=== PATIENT | female | born 1995 | race Two or more races ===

== ENCOUNTER 2021-09-17 09:31 | Outpatient (CLI) | payer BC ==
[2021-09-17 21:05] LABS: SARS-CoV-2 PCR by NAA Not Detected (NotDetected)
== END 2021-09-17 09:32 | disposition home or self-care (01) ==
LOC: CSHLAB 09:31
PROVIDERS: ATTEND Obstetrics & Gynecology
DX: Z20.822 Contact with and (suspected) exposure to COVID-19 (principal)
CPT/HCPCS: U0003; U0005

== ENCOUNTER 2021-09-21 19:00 | Inpatient (IN) | payer BC ==
[~2021-09-21 19:00] MED LIST: Bupivacaine 0.25% HCL 30 ML VIAL ONE
[2021-09-21 22:15] VITALS: BMI 27.1
[2021-09-21] MEDS ORDERED: Misoprostol 200 MCG TAB PR PRN (22:51)
[2021-09-21] MEDS ORDERED: Acetaminophen 500 MG TAB PO PRN (22:51)
[2021-09-21] MEDS ORDERED: Zolpidem Tartrate 5 MG TAB PO PRN (22:51)
[2021-09-21] MEDS ORDERED: hydrALAZINE 20 MG/ML VIAL SLOW IVP PRN (22:51)
[2021-09-21] MEDS ORDERED: HYDROcodone/Acetaminophen 5/325 mg Tablet PO PRN ×2 (22:51)
[2021-09-21] MEDS ORDERED: Butorphanol Tartrate 1 MG/ML VIAL SLOW IVP PRN (22:51)
[2021-09-21] MEDS ORDERED: Ibuprofen 800 MG TAB PO PRN (22:51)
[2021-09-21] MEDS ORDERED: Ondansetron PF 4 MG/2 ML Vial IVP PRN (22:51)
[2021-09-21] MEDS ORDERED: Promethazine HCl 25 MG/ML VIAL IM PRN (22:51)
[2021-09-21] MEDS ORDERED: Lidocaine 1% (PF) 30 ML VIAL SC PRN (22:51)
[2021-09-21] MEDS ORDERED: Diphenoxylate HCl/Atropine Tablet PO PRN ×2 (22:51)
[2021-09-21] MEDS ORDERED: Docusate 100 MG CAP PO PRN (22:51)
[2021-09-21] MEDS ORDERED: NS w/ Oxytocin 30 units 500 ML IV SCH ×2 (23:00)
[2021-09-21] MEDS ORDERED: Lactated Ringer's 1,000 ML IV SCH (23:00)
[2021-09-21] MEDS: Misoprostol 100 MCG TAB VAG SCH (23:12)
[2021-09-21 23:24] LABS: Hemoglobin 11.7 g/dL (12.0-15.5); Mean Corpuscular HGB CONC 34.8 g/dL (32.0-36.0); Mean Corpuscular Hemoglobin 33.5 pg (27.0-33.0); Mean Corpuscular Volume 96.3 fl (81.6-98.3); Mean Platelet Volume 9.4 fl (7.4-10.4); Platelet Count 333 10x3/uL (150-450); RBC Distribution Width 12.5 % (11.5-14.5); Red Blood Cell (RBC) Count 3.49 10x6/uL (3.90-5.03); White Blood Cell (WBC) Count 14.1 10x3/uL (3.5-10.5)
[2021-09-22 00:22] LABS: Syphilis Antibody Nonreactive (Nonreactive); Syphilis Antibody Index 0.05 S/CO (<1.00 Non-Reactive)
[2021-09-22 00:23] LABS: HIV (1/2) Antibody/Antigen Non-Reactive (NonReactive); Hep B Surf Ag Non-Reactive S/CO (NonReactive)
[2021-09-22 00:31] LABS: HBSAg Index 0.27 S/CO (0-0.99)
[2021-09-22] MEDS ORDERED: Fentanyl 2 mcg/Bup 0.1% Cadd 100 ML ONE ×2 (05:26→13:05)
[2021-09-22] MEDS ORDERED: Acetaminophen 325 MG TAB PO PRN (06:38)
[2021-09-22] MEDS ORDERED: Naloxone HCl 0.4 mg/ml Vial IVP PRN ×2 (06:38)
[2021-09-22] MEDS ORDERED: Hydrocerin (Eucerin) Cream 120 gm Jar TOP PRN (06:38)
[2021-09-22] MEDS ORDERED: Ondansetron PF 4 MG/2 ML Vial IVP PRN ×2 (06:38→14:15)
[2021-09-22] MEDS ORDERED: diphenhydrAMINE 50 MG/ML VIAL IVP PRN (06:38)
[2021-09-22] MEDS ORDERED: Promethazine HCl 25 MG/ML VIAL IM PRN (06:38)
[2021-09-22] MEDS ORDERED: ePHEDrine Sulfate 50 MG/10 ML VIAL SLOW IVP PRN (06:38)
[2021-09-22] MEDS ORDERED: Lactated Ringer's 500 ML IV PRN (06:38)
[2021-09-22] MEDS ORDERED: Fentanyl 2 mcg/Bupivacaine 0.1% Cassette 100 ML EPIDURAL SCH (06:45)
[2021-09-22] MEDS ORDERED: Communication Order-Pharmacy FS SCH (06:45)
[2021-09-22] MEDS ORDERED: Carboprost 250 MCG/ML AMP ONE (13:56)
[2021-09-22] MEDS ORDERED: Misoprostol 200 MCG TAB ONE (13:56)
[2021-09-22] MEDS ORDERED: Methylergonovine 0.2 MG/ML VIAL ONE (13:56)
[2021-09-22] MEDS ORDERED: NS w/ Oxytocin 30 units 500 ML IV SCH (14:15)
[2021-09-22] MEDS ORDERED: Preparation H Ointment 28 GM TUBE PR PRN (14:15)
[2021-09-22] MEDS ORDERED: Boostrix 0.5 ML (Tdap) VIAL IM ONE (14:15)
[2021-09-22] MEDS ORDERED: Benzocaine-Menthol 82.5 ML CAN TOP PRN (14:15)
[2021-09-22] MEDS ORDERED: Misoprostol 200 MCG TAB VAG PRN (14:15)
[2021-09-22] MEDS ORDERED: hydrALAZINE 20 MG/ML VIAL SLOW IVP PRN (14:15)
[2021-09-22] MEDS ORDERED: Milk Of Magnesia 30 ML UDCUP PO PRN (14:15)
[2021-09-22] MEDS ORDERED: diphenhydrAMINE 25 MG CAP PO PRN (14:15)
[2021-09-22] MEDS ORDERED: Lanolin Ointment 7 GM TUBE TOP PRN (14:15)
[2021-09-22] MEDS ORDERED: Bisacodyl 10 MG SUPP PR PRN (14:15)
[2021-09-22] MEDS ORDERED: Witch Hazel-Glycerin 1 EACH JAR TOP PRN (14:18)
[2021-09-22] MEDS: Misoprostol 100 MCG TAB VAG SCH ×2 (18:28→18:29)
[2021-09-22] MEDS: Ferrous Sulfate 325 MG TAB PO SCH (18:28)
[2021-09-22] MEDS ORDERED: HYDROcodone/Acetaminophen 5/325 mg Tablet PO PRN (19:11)
[2021-09-22] MEDS: HYDROcodone/Acetaminophen 5/325 mg Tablet PO PRN (19:38)
[2021-09-22] MEDS: Ibuprofen 800 MG TAB PO SCH (21:44)
[2021-09-22] MEDS: Docusate 100 MG CAP PO SCH (21:44)
[2021-09-23 04:24] LABS: Hemoglobin 9.1 g/dL (12.0-15.5); Mean Corpuscular HGB CONC 34.2 g/dL (32.0-36.0); Mean Corpuscular Volume 99.3 fl (81.6-98.3); Mean Platelet Volume 9.4 fl (7.4-10.4); Platelet Count 237 10x3/uL (150-450); RBC Distribution Width 12.7 % (11.5-14.5); Red Blood Cell (RBC) Count 2.68 10x6/uL (3.90-5.03); White Blood Cell (WBC) Count 18.6 10x3/uL (3.5-10.5)
[2021-09-23] MEDS: Ibuprofen 800 MG TAB PO SCH ×3 (05:37→21:42)
[2021-09-23] MEDS: Ferrous Sulfate 325 MG TAB PO SCH ×2 (08:25→17:27)
[2021-09-23] MEDS: Docusate 100 MG CAP PO SCH ×2 (08:25→21:42)
[2021-09-23] MEDS: HYDROcodone/Acetaminophen 5/325 mg Tablet PO PRN (08:30)
[2021-09-23] MEDS ORDERED: Prenatal Vitamin 1 TAB PO SCH (09:00)
[2021-09-24] MEDS: Ibuprofen 800 MG TAB PO SCH (05:14)
[2021-09-24 07:55] VITALS: BP 112/77; TEMP 97.9
[2021-09-24] MEDS: Docusate 100 MG CAP PO SCH (08:58)
== END 2021-09-24 13:00 | disposition home or self-care (01) | DRG 806 ==
LOC: CSHLD 21:20 → CSHPP 09-22 16:50
PROVIDERS: ADMIT Obstetrics & Gynecology; ATTEND Obstetrics & Gynecology
PROC: 3E0P7VZ Introduction of Hormone into Female Reproductive, Via Natural or Artificial Opening (ICD-10-PCS; 2021-09-21)
PROC: 10E0XZZ Delivery of Products of Conception, External Approach (ICD-10-PCS; principal; 2021-09-22)
PROC: 0KQM0ZZ Repair Perineum Muscle, Open Approach (ICD-10-PCS; 2021-09-22)
PROC: 10907ZC Drainage of Amniotic Fluid, Therapeutic from Products of Conception, Via Natural or Artificial Opening (ICD-10-PCS; 2021-09-22)
PROC: 0HQ9XZZ Repair Perineum Skin, External Approach (ICD-10-PCS; 2021-09-22)
DX: O75.3 Other infection during labor (principal); O72.1 Other immediate postpartum hemorrhage; Z37.0 Single live birth; N76.0 Acute vaginitis; O70.1 Second degree perineal laceration during delivery; Z3A.39 39 weeks gestation of pregnancy; Z79.899 Other long term (current) drug therapy; O70.0 First degree perineal laceration during delivery
CPT/HCPCS: 36415; 51702; 85027; 86780; 86850; 86900; 86901; 87340; 87389; J2405; J2590; S0020

== ENCOUNTER 2021-09-28 13:15 | Emergency (ER) | payer BC ==
[2021-09-28 13:56] LABS: #Basophils 0.1 10x3/uL (0.0-0.2); #Eosinphils 0.2 10x3/uL (0.0-0.5); #Monocytes 0.5 10x3/uL (0.0-1.1); #Neutrophils 8.6 10x3/uL (1.5-8.4); %Basophils 0.6 % (0.0-2.0); %Eosinophils 2.1 % (0.0-6.0); %Lymphocytes 18.7 % (18.0-47.0); %Monocytes 4.3 % (0.0-10.0); %Neutrophils 73.6 % (40.0-75.0); Hemoglobin 10.1 g/dL (12.0-15.5); Mean Corpuscular HGB CONC 34.7 g/dL (32.0-36.0); Mean Corpuscular Hemoglobin 33.2 pg (27.0-33.0); Mean Corpuscular Volume 95.7 fl (81.6-98.3); Mean Platelet Volume 8.2 fl (7.4-10.4); Platelet Count 392 10x3/uL (150-450); RBC Distribution Width 12.7 % (11.5-14.5); Red Blood Cell (RBC) Count 3.04 10x6/uL (3.90-5.03); White Blood Cell (WBC) Count 11.6 10x3/uL (3.5-10.5)
[2021-09-28 14:08] LABS: INR-International Normal Ratio 0.9; PTT 26.3 sec (22.0-33.0); Prothrombin Time 10.2 sec (9.5-12.1)
[2021-09-28 14:11] LABS: ALT (SGPT) 24 U/L (8-55); AST (SGOT) 25 U/L (5-34); Albumin 3.6 g/dL (3.5-5.0); Alkaline Phosphatase 114 U/L (40-110); Anion Gap 14 mmol/L (10-20); BUN (Urea Nitrogen) 11 mg/dL (7.0-18.7); Bilirubin, Total 0.4 mg/dL (0.2-1.2); Calc. Creatinine Clearance 0 mL/min (70-130); Calcium 8.5 mg/dL (7.8-10.44); Carbon Dioxide 19 mmol/L (22-29); Chloride 110 mmol/L (98-107); Glucose 81 mg/dL (70-105); Potassium 3.9 mmol/L (3.5-5.1); Protein, Total 6.6 g/dL (6.0-8.3); Sodium 139 mmol/L (136-145)
== END 2021-09-28 16:07 | disposition home or self-care (01) ==
LOC: CSHERS 13:15
DX: O72.2 Delayed and secondary postpartum hemorrhage (principal)
CPT/HCPCS: 80053; 85025; 85610; 85730; 86850; 86900; 86901; 99284